=== PATIENT | male | born 1955 | race Caucasian/White ===

== ENCOUNTER 2016-08-25 09:06 | Day surgery (SDC) | payer OTHER ==
[~2016-08-25] VITALS: Ht 180.3 cm; Wt 94.5 kg
[2016-08-25] MEDS ORDERED: LIPITOR 10MG10 MG PO (09:36)
[2016-08-25 09:45] VITALS: BP 135/84; PULSE 77; TEMP 98.1
[2016-08-25 11:30] VITALS: BP 111/71; PULSE 68; TEMP 98.1
[2016-08-25 11:45] VITALS: BP 106/72; PULSE 64
[2016-08-25 12:00] VITALS: BP 108/74; PULSE 64
== END 2016-08-25 12:10 | disposition home or self-care (01) ==
LOC: SDCO 09:06
DX: Z12.11 Encounter for screening for malignant neoplasm of colon (principal); K57.30 Diverticulosis of large intestine without perforation or abscess without bleeding; Z87.19 Personal history of other diseases of the digestive system
CPT/HCPCS: OP; J2250; J2405; J3010; J7030

== ENCOUNTER 2018-07-27 19:29 | Emergency (ER) | payer OTHER ==
[~2018-07-27] VITALS: Ht 180.3 cm; Wt 95.5 kg
[~2018-07-27 19:29] MED LIST: LIPITOR 10MG10 MG PO
[2018-07-27 19:33] VITALS: BP 145/104; TEMP 97.6
[2018-07-27] MEDS ORDERED: ASPIRIN 81M81 MG/TA2 PO (19:36)
[2018-07-27 21:12] VITALS: PULSE 94
== END 2018-07-27 21:13 | disposition home or self-care (01) ==
LOC: COL.ER 19:29
DX: S80.12XA Contusion of left lower leg, initial encounter (principal); S80.11XA Contusion of right lower leg, initial encounter; S16.1XXA Strain of muscle, fascia and tendon at neck level, initial encounter; Z79.82 Long term (current) use of aspirin; V43.52XA Car driver injured in collision with other type car in traffic accident, initial encounter

== ENCOUNTER → 2018-08-14 | Outpatient (CLI) | payer OTHER ==
[~2018-08-14] MED LIST changes: +ASPIRIN 81M81 MG/TA2 PO
== END ==
LOC: COL.RAD 07:13
DX: M19.012 Primary osteoarthritis, left shoulder (principal); V89.2XXA Person injured in unspecified motor-vehicle accident, traffic, initial encounter; Z98.890 Other specified postprocedural states

== ENCOUNTER → 2020-01-04 | Outpatient (REF) ==
[~2020-01-04] VITALS: Ht 180.3 cm; Wt 94.5 kg
[~2020-01-04] MED LIST changes: +ASPIRIN E.C. 8181 MG PO
[2020-01-04 10:13] VITALS: BP 123/84; PULSE 78; TEMP 98
[2020-01-04 11:35] LABS: HIV 1/2 Antibodies Non-Reactive; HIV-1p24 Antigen Non-Reactive
[2020-01-05 20:40] LABS: HEPATITIS B SURFACE ANTIGEN Negative (Negative); HEPATITIS C VIRUS ANTIBODY Negative (Negative)
== END ==
LOC: COL.ER 10:03
PROVIDERS: Emergency Medicine
DX: S61.231A Puncture wound without foreign body of left index finger without damage to nail, initial encounter (principal); W46.0XXA Contact with hypodermic needle, initial encounter; Z88.6 Allergy status to analgesic agent; Z79.82 Long term (current) use of aspirin

== ENCOUNTER 2020-08-30 14:56 | Inpatient (IN) | payer OTHER ==
[~2020-08-30] VITALS: Ht 180.3 cm; Wt 91.0 kg
[2020-09-14] VITALS (10 sets, daily range): BP systolic 114–139; BP diastolic 63–85; PULSE 74–96; TEMP 97.6–98.2
--- NOTE | 2020-09-14 06:34 | NUR ---
Pt arrived via ambulation with , Shonda. A&O. Verbalized understanding of surgery, consent obtained. Lungs CTA bilaterally. Normal HRR. Pt reports he drank gatorade this am per ERAS protocol instructions. IVF infusing to 20g in right hand. Denies questions or concerns. ERAS meds administered-see SEP. VSS. Call light in reach.
[2020-09-14 06:42] LABS: BASO % 0.4 % (0.0-2.0); EOS # 0.4 (0.0-0.7); EOS % 5.2 % (0-4.0); GRAN # 3.9 (1.4-6.5); GRAN % 57.4 % (42.2-75.2); HEMATOCRIT 45.1 % (42.0-52.0); HEMOGLOBIN 15.4 g/dl (13.5-18.0); LYMPH # 1.9 (1.2-3.4); LYMPH % 27.9 % (20.0-51.0); MEAN CELL VOLUME 87 fl (80.0-100.0); MEAN CORPUSCULAR HEMOGLOBIN 30 pg (27.0-31.0); MEAN CORPUSCULAR HGB CONC 34 g/dl (33.0-37.0); MEAN PLATELET VOLUME 8.9 fl (7.4-10.4); MONO # 0.6 (0.1-0.6); PLATELET COUNT 207 K/mm3 (130-400); RED BLOOD COUNT 5.21 M/mm3 (4.20-5.60); REDCELL DISTRIBUTION WIDTH-CV 12.7 % (11.5-14.5)
[2020-09-14] MEDS ORDERED: ONE-A-DAY ESSE1 EACH PO (06:47)
[2020-09-14 06:52] LABS: ALBUMIN 4.1 gm/dL (3.5-5.0); BILIRUBIN,TOTAL 1.5 mg/dL (0.0-1.0); CALCIUM 9.1 mg/dL (8.4-10.2); CREATININE, serum 0.87 (0.66-1.25); POTASSIUM 3.9 mmol/L (3.4-5.0); TOTAL PROTEIN 7.1 gm/dL (6.4-8.2)
--- NOTE | 2020-09-14 13:26 | NUR ---
PT TO ROOM 350 PER BED WITH REPORT FROM JOSE C SURVIVAL EQUIPMENT REPAIRER. PT IS A/O X4, LUNGS CTA, BOWEL SOUNDS PRESENT. BRAGA CATHETER TO DD. RED FLUID IN BRAGA BAG. VSS, PAIN WELL CONTROLLED. SIX ROBOT SITES CDI WITH ANDREA JORGE. IV TO RH TO INT. PT DRINKING WELL.
--- NOTE | 2020-09-14 13:29 | NUR ---
PT'S DAVID IN WITH PT AT THIS TIME.
--- NOTE | 2020-09-14 15:51 | NUR ---
PT INDEPENDENT IN ROOM MEETING ALL ERAS PROTOCOLS. PT HAS SPENT MAJORITY OF PN UP IN RECILINER AND IS AMBULTING INDEPENDENTLY.
[2020-09-15 00:28] VITALS: BP 107/63; PULSE 73; TEMP 98.3
[2020-09-15 05:01] VITALS: BP 103/59; PULSE 73; TEMP 98.7
[2020-09-15 07:05] LABS: HEMATOCRIT 39.5 % (42.0-52.0); HEMOGLOBIN 13.6 g/dl (13.5-18.0)
[2020-09-15 07:21] LABS: CALCIUM 8.4 mg/dL (8.4-10.2); CREATININE, serum 0.98 (0.66-1.25); POTASSIUM 3.9 mmol/L (3.4-5.0)
[2020-09-15 08:00] VITALS: BP 114/62; PULSE 76; TEMP 98.4
--- NOTE | 2020-09-15 09:18 | NUR ---
PT INDEPENDENT IN AND OUT OF ROOM. BRAGA CATH TO DD WITH CLEARING YELLOW URINE WITH FEW SM CLOTS. PT REFUSING ALL PAIN MEDS AND IV MEDS. DR. KRISHNA IN TO SEE PT. PLAN ON DISCHARGE LATER TODAY.
--- NOTE | 2020-09-15 09:33 | NUR ---
Surgical Endoscopist met with patient and patient's , Shonda (ph#[phone]) to discuss discharge planning. Patient lives north of [place] with Shonda and sees Dr. Carrillo for primary care. Patient gets his medications from either [facility] or [facility] with no difficulties. Patient does not use any DME and is independent with [facility]. 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 Patient reports he has DPOA-HC completed that designates Shonda. Patient reports he intended to bring in a copy but accidently grabbed Shonda's paperwork. Patient did bring in a copy of his living will. Patient plans to return home upon discharge and states he believes he will go home today.
--- NOTE | 2020-09-15 12:19 | NUR ---
First visit from the nib assembler. No needs right now.
--- NOTE | 2020-09-15 13:01 | NUR ---
DISCHARGE INSTRUCTIONS REVIEWED WITH PT AND SPOUSE, QUESTIONS SOLICITED AND ANSWERED. PT LEFT UNIT AMBULATORY WITH STAFF.
== END 2020-09-15 12:10 | disposition home or self-care (01) | DRG 708 ==
LOC: INPTSU 09-14 05:27 → SURG 09-14 07:30
PROVIDERS: ADMIT Urology
PROC: 07TC4ZZ Resection of Pelvis Lymphatic, Percutaneous Endoscopic Approach (ICD-10-PCS; 2020-09-14)
PROC: 8E0W4CZ Robotic Assisted Procedure of Trunk Region, Percutaneous Endoscopic Approach (ICD-10-PCS; 2020-09-14)
PROC: 0VT04ZZ Resection of Prostate, Percutaneous Endoscopic Approach (ICD-10-PCS; principal; 2020-09-14 07:30)
DX: C61 Malignant neoplasm of prostate (principal); Z79.82 Long term (current) use of aspirin; Z88.6 Allergy status to analgesic agent
CPT/HCPCS: A4314; A9284; J0690; J1885; J2370; J2704; J3010; J7050; J7120

== ENCOUNTER → 2020-09-08 | Outpatient (CLI) | payer OTHER ==
[2005-08-23 08:40] VITALS: TEMP 97.9
[~2020-09-08] MED LIST changes: +ONE-A-DAY ESSE1 EACH PO
[2020-09-09 11:14] LABS: HEMATOCRIT 46.3 % (42.0-52.0); HEMOGLOBIN 15.5 g/dl (13.5-18.0); MEAN CELL VOLUME 88 fl (80.0-100.0); MEAN CORPUSCULAR HEMOGLOBIN 29 pg (27.0-31.0); MEAN CORPUSCULAR HGB CONC 34 g/dl (33.0-37.0); MEAN PLATELET VOLUME 9.3 fl (7.4-10.4); PLATELET COUNT 230 K/mm3 (130-400); RED BLOOD COUNT 5.29 M/mm3 (4.20-5.60); REDCELL DISTRIBUTION WIDTH-CV 12.9 % (11.5-14.5)
[2020-09-09 11:43] LABS: ALBUMIN 4.4 gm/dL (3.5-5.0); BILIRUBIN,TOTAL 0.8 mg/dL (0.0-1.0); CALCIUM 9.5 mg/dL (8.4-10.2); CREATININE, serum 0.98 (0.66-1.25); POTASSIUM 4.6 mmol/L (3.4-5.0); TOTAL PROTEIN 7.5 gm/dL (6.4-8.2)
== END ==
LOC: COL.LAB 17:56
PROVIDERS: Urology
DX: C61 Malignant neoplasm of prostate (principal)